=== PATIENT | male | born 1955 | race Caucasian/White ===

== ENCOUNTER 2025-05-14 16:35 | Emergency (ER) | payer MEDICARE, SELFPAY ==
[2025-05-14 16:46] VITALS: BP 145/92
--- NOTE | 2025-05-14 18:03 | ED.GENMED ---
History of Present Illness
General
Chief Complaint: Chest Pain
Source: patient
Exam Limitations: none
Time Seen by Provider: 05/14/25 18:01
History of Present Illness
History of Present Illness:
69yoM with a history of hyperlipidemia and GERD presenting for evaluation of chest discomfort. Patient had an episode of dizziness about 1.5 weeks ago while at [place] in which he was unable to walk in a straight line. This resolved after a few hours
and has not recurred. He started to have chest discomfort about a week ago. He describes a pressure sensation beneath his diaphragm and a 'weird sensation' in the left upper chest with intermittent tingling of the left arm. Symptoms are
intermittent but nothing seems to make them better or worse. He has been able to exercise and walk without any worsening symptoms. He denies any shortness of breath, abdominal pain, dysphagia, nausea, vomiting, headache, syncope. He has a strong
family history of coronary artery disease and his father had his first heart attack at the age of 39. He was previously following with Dr. Mustafa but had all normal cardiac testing other than a baseline abnormal EKG and was told he no longer needed
to follow-up.
Past History
Past History
ED Past Medical History: GERD and Hypercholesterolemia
ED Past Surgical History: None
Social History
Tobacco: Non-smoker
Phy Exam
General Physical Exam
General Presentation: well appearing and no apparent distress
General Skin: warm and dry
General Habitus: normal
General Mental: alert
ENT Exam
ENT Exam: normocephalic
Cardiovascular Exam
Cardiovascular Exam: regular rate/rhythm, no edema, no murmur and normal peripheral pulses (2+ radial pulses bilaterally)
Pulmonary Exam
Pulmonary Exam: lungs clear, no respiratory distress, no rales, no crackles, no rhonchi, no stridor and no wheezing
Gastrointestinal Exam
Gastrointestinal Exam: non tender, soft and non distended
Neurological Exam
Neurological Exam: alert
Ashlie Coma Scale
Eye Opening: Spontaneous
Verbal Response: Oriented
Motor Response: Obeys Commands
GCS Total Score: 15
Skin Exam
Skin Exam: normal color and warm/dry
Psychiatric Exam
Psychiatric Exam: normal mood/affect
Scores
Heart Score for Chest Pain Patients
STEMI patient?: No
History: Slightly or Non-Suspicious
ECG: Nonspecific Repolarization
Age: >/= 65 years
Risk Factors: 1 or 2 Risk Factors
Troponin: </= Normal Limit
Heart Score for Chest Pain Patients: 4
Heart Score Risk: 20.3% MACE over next 6 weeks
Course
Orders/Labs/Results
Orders:
Orders
05/14/25 16:35
EKG [Electrocardiogram (*1)] Urgent
Reason for Study: Chest Pain
EKG- Treatment ONCE
05/14/25 18:18
Cardiac Monitoring- Treatment ONCE
05/14/25 18:19
Complete Blood Count/With Diff Urgent
Comprehensive Metabolic Panel Urgent
D-Dimer Urgent
Lipase Urgent
Troponin I Urgent
05/14/25 18:58
CR Chest - 2 Views Urgent
Comment:
Reason For Exam: CP
Abnormal Lab Results
05/14/25
18:19
RBC 4.37 L 10^6/uL
(4.70-6.10)
MCV 94.3 H fL
(80.0-94.0)
MCH 32.5 H pg
(27.0-31.0)
MPV 11.0 H fL
(7.4-10.4)
Glucose 120 H mg/dl
(70-99)
05/14/25 18:19
05/14/25 18:19
Vital Signs
Initial and Last Documented VS:
Initial Vital Signs
Temp Pulse Resp BP Pulse Ox
97.7 F 64 20 145/92 95
05/14/25 16:46 05/14/25 16:46 05/14/25 16:46 05/14/25 16:46 05/14/25 16:46
Last Documented Vital Signs
Temp Pulse Resp BP Pulse Ox
97.7 F 55 14 125/78 96
05/14/25 16:46 05/14/25 20:15 05/14/25 20:15 05/14/25 20:00 05/14/25 20:15
MDM/Problems Addressed
Differential Diagnosis Includes:
69yoM here with intermittent chest pain x 1 week. Feels like a pressure above diaphragm. Also having L arm tingling. VSS. Patient well-appearing no distress. Exam reassuring. Differential diagnosis includes: ACS, PE, esophagitis/GERD
Initial ED plan: EKG from triage shows normal sinus rhythm with nonspecific T wave changes which is unchanged from prior EKG in 2019. Will check cardiac labs, lipase, D-dimer, and chest x-ray.
*Pulse Oximetry
SaO2: 95
Oxygen Mode of Delivery: Room air
Patient hypoxic: no
*EKG
Interpreted by ED Provider?: Yes
EKG Intrepretation Date: 05/14/25
Heart Rate: 56
Rate: bradycardiac
Rhythm: sinus
[place]: normal axis
Interval: normal interval
QRS Pattern: normal QRS
Ischemia: other (Nonspecific T wave abnormality, appears similar to prior EKG from 2019)
*Critical Care Note
Total Time (30-74mins, 75-104mins- exclusive of procedures): Not Applicable
Update Note
Update Note:
D-dimer normal making PE very unlikely. Troponin undetectable. Chest x-ray clear. No indication for hospitalization. Will have patient follow-up with chest pain hotline. Strict ED return precautions reviewed. Patient in agreement with plan and
he was discharged in stable condition.
ED Attending Note
-
Portions of this chart may have been created with voice recognition software.� Occasional wrong word or��sound alike� substitutions may have occurred due to the inherent limitations of voice recognition software.
Discharge Plan
Departure
Patient Disposition: Home (Routine Discharge)
Date of Disposition: 05/14/25
Time of Disposition: 20:25
Patient with high blood pressure during this ER visit?: No
Discharge Problem:
Chest pain
Instructions: Chest Pain DCA Follow Up
Prescriptions:
No Action
atorvastatin [Lipitor] 80 MG tablet
80 mg PO DAILY
omeprazole 10 MG capsule,delayed release(DR/EC)
10 mg PO DAILY PRN (Reason: indigestion)
allopurinol 300 MG tablet
300 mg PO HS
Activity Restrictions/Additional Instructions:
The cardiology office should call you to schedule a follow-up appointment. Please call the office if you do not hear from them.
Return to the ER immediately with any new or worsening symptoms.
Interventions
Interventions:
*General Assessment Last Done: 05/14/25 16:46
*Neglect/Abuse Screening Last Done: 05/14/25 16:46
*ED COVID-19 Vaccine History Last Done: 05/14/25 19:28
*ED Influenza Vaccine History Last Done: 05/14/25 19:28
[facility] Risk Assessment Tool Last Done: 05/14/25 19:28
*Risk Screen - Suicide (C-SSRS) Last Done: 05/14/25 19:28
*Nursing Disposition Last Done: 05/14/25 20:37
ED- Cardiac Assessment Last Done: 05/14/25 20:00
Discharge Date and Time
Discharge Date/Time: 05/14/25 20:37
Print Language: PERSIAN
[2025-05-14 18:27] VITALS: BP 129/63
[2025-05-14 18:41] LABS: Hematocrit 41.2 % (39.0-52.0); Hemoglobin 14.2 g/dL (13.0-18.0); Mean Corp Hgb Conc. 34.5 g/dL (33.0-37.0); Mean Corpuscular Volume 94.3 fL (80.0-94.0); Nucleated Red Blood Cells % 0 % (-); Platelet Count 156 10^3/uL (130-400); Red Cell Dist. Width 13.0 % (11.5-14.5)
[2025-05-14 18:50] LABS: D-Dimer 0.35 ug/mlFEU (0.00-0.50)
[2025-05-14 19:00] VITALS: BP 118/62
[2025-05-14 19:03] LABS: Troponin I < 0.012 ng/ml
[2025-05-14 19:06] LABS: ALT (SGPT) 20 U/L (0-50); AST (SGOT) 23 U/L (17-59); Albumin 4.0 g/dl (3.5-5.0); Alkaline Phosphatase 62 U/L (38-126); Blood Urea Nitrogen 18 mg/dl (9-20); Calcium 9.2 mg/dl (8.4-10.2); Carbon Dioxide 24 mmol/L (22-30); Chloride 105 mmol/L (98-107); Glucose 120 mg/dl (70-99); Lipase 106 U/L (23-300); Potassium 4.0 mmol/L (3.5-5.1); Sodium 136 mmol/L (135-145); Total Protein 6.5 g/dl (6.3-8.2); eGFR > 60.00
[2025-05-14 19:28] VITALS: BMI 25.7
[2025-05-14 20:00] VITALS: BP 125/78
== END 2025-05-14 20:37 | disposition home or self-care (01) ==
LOC: EMR 16:35
PROVIDERS: Physician Assistant; EMERGENCY PHYSICIAN Emergency Medicine; FAMILY PHYSICIAN Family Medicine
DX: R07.89 Other chest pain (principal); E78.00 Pure hypercholesterolemia, unspecified; Z82.49 Family history of ischemic heart disease and other diseases of the circulatory system
CPT/HCPCS: 99285; 71046; 80053; 83690; 84484; 85025; 85379; 93005